=== PATIENT | male | born 1940 | race Caucasian/White ===

== ENCOUNTER 2019-08-06 06:39 | Day surgery (SDC) | payer MEDICARE, OTHER ==
[2019-08-04 10:53] LABS: Basophils # (auto) 0.1 10 ^3/uL (0-0.2); Basophils % (auto) 0.9 % (0.0-2.0); Eosinophils # (auto) 0.3 10 ^3/uL (0-0.8); Eosinophils % (auto) 2.9 % (0.0-7.0); Lymphocytes # (auto) 1.8 10 ^3/uL (0.4-5.4); Lymphocytes % (auto) 15.3 % (10.0-50.0); Mean Corpuscular Hemoglobin 28.4 pg (28.0-32.0); Mean Corpuscular Hgb Conc. 33.3 g/dL (32.0-36.0); Mean Corpuscular Volume 85.2 fL (80.0-100.0); Monocytes # (auto) 0.9 10 ^3/uL (0-1.3); Monocytes % (auto) 7.3 % (0.0-12.0); Neutrophils # (auto) 8.6 10 ^3/uL (1.6-8.6); Neutrophils % (auto) 73.6 % (37.0-80.0); Nucleated Red Blood Cells % 0.1 %; Platelet Count (auto) 312 10^3/uL (140-450); Red Blood Cells 4.93 10^6/uL (4.5-5.90); Red Cell Distribution Width 13.3 % (11.8-14.3); White Blood Cell 11.7 10^3/uL (4.4-10.8)
[2019-08-04 10:56] LABS: Urine Bacteria NONE SEEN /hpf (None Seen); Urine Blood TRACE /uL (Negative); Urine Mucus FEW (None Seen); Urine Specific Gravity 1.022 (1.001-1.035); Urine WBC 1 /hpf (0 - 3)
[2019-08-04 11:10] LABS: Albumin 3.8 g/dL (3.4-5.0); Calcium 8.6 mg/dL (8.5-10.1); Potassium 4.2 mmol/L (3.5-5.1)
[2019-08-04 11:14] LABS: BUN/Creatinine Ratio 10.3; Bilirubin, Total 0.9 mg/dL (0.2-1.0); Total Protein 8.2 g/dL (6.4-8.2)
[2019-08-04 11:16] LABS: INR 1.03 (0.9-1.15); Partial Thromboplastin Time 30.5 sec (23.64-32.05)
[~2019-08-06] VITALS: Ht 188 cm; Wt 95.3 kg
[2019-08-06] MEDS ORDERED: ceFAZolin 1GM/50ML 50 ML IV ONE (07:25)
[2019-08-06] MEDS ORDERED: ROPIVACAINE 0.5% (5MG/ML) 20ML AMPULE IJ ONE (08:17)
[2019-08-06] MEDS ORDERED: PROPOFOL 10 MG/ML 20 ML IV ONE (08:42)
[2019-08-06] MEDS ORDERED: KETOROLAC TROMETH 30 MG/ML 1ML VIAL ONE (08:42)
[2019-08-06] MEDS ORDERED: GLYCOPYRROLATE 0.2 MG/ML 1ML VIAL ONE (08:42)
[2019-08-06] MEDS ORDERED: MIDAZOLAM HCL 1MG/1ML-2 ML VIAL ONE (08:42)
[2019-08-06] MEDS ORDERED: ONDANSETRON HCL 4 MG/2 ML VIAL ONE (08:42)
[2019-08-06] MEDS ORDERED: ceFAZolin 1GM VL ONE (09:00)
[2019-08-06] MEDS ORDERED: HYDROmorphone HCL 2 MG/ML VL IV PRN (09:30)
[2019-08-06] MEDS ORDERED: ONDANSETRON HCL 4 MG/2 ML VIAL IV PRN (09:30)
[2019-08-06 09:40] VITALS: BP 141/67
[2019-08-06] MEDS ORDERED: NEOMYCIN-BACITRACIN-POLYM 15GM TOP OINT TOP ONE (10:27)
== END 2019-08-06 09:40 | disposition home or self-care (01) ==
LOC: SUR 06:39
PROVIDERS: ATTEND Podiatrist Foot & Ankle Surgery
DX: I87.8 Other specified disorders of veins (principal); L97.312 Non-pressure chronic ulcer of right ankle with fat layer exposed; I10 Essential (primary) hypertension; Z98.890 Other specified postprocedural states; Z11.59 Encounter for screening for other viral diseases
CPT/HCPCS: 15004; 15275; 36415; 80053; 81001; 85025; 85610; 85730; 87070; 87075; 87076; 87077; 87205; 88305; C1776; C1887; J0690; J1885; J2250; J2405; J2704; J2795; U0003